=== PATIENT | female | born 1980 | race Caucasian/White ===

== ENCOUNTER 2017-01-28 12:23 | Observation (INO) | payer BC ==
[~2017-01-28] VITALS: Ht 170.2 cm; Wt 96.4 kg
--- NOTE | ~2017-01-28 | OR ---
PATIENT'S NAME: JOSE MCCLOUD [facility] AGE: 36 Y [address] ROOM: [address] [address] LOCATION: BS ADMIT DATE: 01/28/2017 OR/Procedure Report DISCHARGE DATE: FAMILY PHYSICIAN: Daljit Nye MD ATTENDING PHYSICIAN: Kamron Ryan SURGEON: Kamron Ryan MD PATROL COMMANDER: Betzaida Jeff PA-C. DATE OF PROCEDURE: 01/28/2017 PREOPERATIVE DIAGNOSES: 1. Chronic cholecystitis and cholelithiasis. 2. Possible choledocholithiasis. POSTOPERATIVE DIAGNOSIS: Acute cholecystitis and cholelithiasis with cystic duct obstruction, secondary to stone, resolution of common bile duct filling defect with flushing. PROCEDURE: Laparoscopic cholecystectomy with intraoperative cholangiogram. ANESTHESIA: General with 30 mL 0.5% Marcaine. SPECIMEN: Gallbladder. CHOLANGIOGRAM FINDINGS: The 1st three spot films on cholangiogram view showed possible correct anatomy identified with cannulation of the cystic duct, mildly dilated common bile duct with floating filling defect, but flow of contrast into duodenum after removing more cystic duct debris and final cholangiogram still shots showed resolution of the filling defect. INDICATION: The patient is a 36-year-old young lady kindly sent down by her emergency room up in [place], [place] with cholecystitis and cholelithiasis and possible common duct stone. The patient's preop liver function tests, amylase, lipase were normal, elevated white count 14,000. We recommended gallbladder removal with cholangiogram assessment of the common duct, the procedure, benefits, risks, and she agreed to proceed. DESCRIPTION OF PROCEDURE: After informed consent, the patient was taken to the operating room, and after general endotracheal anesthesia, the patient's abdomen was prepped and draped into a sterile field. Time-out performed. We confirmed the patient, plan, procedure, and administration of preop antibiotics. Local anesthetic infiltrated prior to each incision. The first one made below the umbilicus and carried down to identify the anterior fascia through which a Veress needle inserted, pneumoperitoneum created, trocars placed in standard position, safe entry was noted. The gallbladder was distended, pale, looked hydropic, lot of acute inflammatory changes, and PATIENT'S NAME: JOSE CMCLOUD [facility] AGE: 36 Y [address] ROOM: [address] [address] LOCATION: GOBS ADMIT DATE: 01/28/2017 OR/Procedure Report DISCHARGE DATE: FAMILY PHYSICIAN: Daljit Nye MD ATTENDING PHYSICIAN: Kamron Ryan. We isolated out the infundibulum and stripped down the very edematous adhesions. The infundibulum was impacted with stones and the cystic duct once we opened up the triangle was dilated. We identified the enlarged cystic lymph node, stripped it down, exposed the cystic artery and clipped it x3. We then got circumferential control around the proximal cystic duct, which was dilated. We placed a clip on the gallbladder side, did a cystotomy, and retrograde and milked out cystic duct stones. We attempted our 1st cholangiogram, but we could not get, we had back flow, back pressure, and could not get it to go into the common bile duct without a leak. Therefore, we removed the catheter and we dissected out additional length of the cystic duct. We found an impacted stone. We crushed the stone in and milked it out till we got free flow of contrast coming out. Our initial cholangiogram showed a possible filling defect. We then went ahead and flushed it with 20 mL of saline, re-shot our films, and there appeared to be no residual filling defect, presumably the common bile duct stone had passed. Next, we removed the cholangiogram catheter and clipped the cystic duct x3 distally and divided. The gallbladder was removed from the liver bed and placed into an EndoCatch bag and brought out through the umbilical incision. We irrigated until clear and bleeding points of liver or gallbladder fossa cauterized. We used the Endo Stitch to close the subxiphoid 11-mm fascia defect. We then released the pneumoperitoneum, removed all the trocars, and closed the fascia defect at the umbilicus with 0 Vicryl, skin closed with subcuticular 4-0 Vicryl, Steri-Strips and sterile dressings applied. The patient tolerated the procedure well and transferred to recovery room in stable condition. KAMRON RYAN MD WTS/modl /[id number] CC: Daljit Nye MD d: 01/29/17 0050 t: 02/01/1714, OPERATIVE SUMMARY
--- NOTE | ~2017-01-28 | HP ---
PATIENT'S NAME: JOSE MCCLOUD [facility] AGE: 36 Y [address] ROOM: [place] [address] [place] [facility] [place]: 01/28/2017 History & Physical DISCHARGE DATE: FAMILY PHYSICIAN: Daljit Nye MD ATTENDING PHYSICIAN: Kamron Cote DATE OF SERVICE: CHIEF COMPLAINT: Abdominal pain. REVIEW OF RECORD: The patient is a 36-year-old young lady kindly referred down from her primary care physician up in [facility] for abdominal pain, suspected cholecystitis, cholelithiasis, and possible choledocholithiasis. The patient states over the last 5 years, she has had " gastric reflux symptoms." She has been having some epigastric pain. It is related to food and alcohol intake, etc,. In the last 48 hours, after drinking alcohol on the evening of 01/26/2017, she had abdominal pain. It lasted till Saturday night, and therefore, she went to the ER. She was found to be tender in the right upper quadrant. The physician ordered ultrasound that showed cholelithiasis and gallstones in the neck of the gallbladder. There was no evidence of gallbladder wall thickening. It is possibly felt to be choledocholithiasis. However, her white count is elevated at 14,000. Her liver function tests amylase and lipase are normal. The patient has had no fevers, chills, or jaundice. She has had some mild nausea and dry emesis. Loose stools, but no blood in her stools. No dysuria. No pulmonary symptoms. She feels better today. They gave her a GI cocktail it sounds like. PAST MEDICAL HISTORY: None. MEDICATIONS: None. ALLERGIES: NONE. OPERATIONS: x2. SOCIAL HISTORY: She does not smoke. Occasionally drinks. She has 2 healthy children. FAMILY HISTORY: PATIENT'S NAME: JOSE MCCLOUD [facility] AGE: 36 Y [address] ROOM: [place] [address] [place] [facility] [place]: 01/28/2017 History & Physical DISCHARGE DATE: FAMILY PHYSICIAN: Daljit Nye MD ATTENDING PHYSICIAN: Kamron Cote Dad had diabetes. Lot of people in her family had gallbladder removed. REVIEW OF SYSTEMS: She denies any cardiac or pulmonary issues. She denies any swollen joints or back pain. PHYSICAL EXAMINATION: GENERAL: A pleasant 36-year-old young lady, alert and cooperative. HEENT: Head is normocephalic. Sclerae are nonicteric. Mucous membranes are dry. NECK: Supple. There is no adenopathy. LUNGS: Clear to auscultation. HEART: Normal sinus rhythm. ABDOMEN: Mildly obese. Positive bowel sounds. She is tender in the right upper quadrant with guarding, but no rebound. EXTREMITIES: 2/2 femoral and dorsalis pedis pulses. No peripheral edema. IMPRESSION: Biliary colic symptoms with evidence of cholelithiasis. I suspect some cholecystitis, may be even choledocholithiasis. With her liver function, amylase and lipase being normal. I recommend that we proceed with gallbladder removal and we will perform a cholangiogram for assessment of the common bile duct. If needed postop ERCP is available. I explained the procedure, benefits, and risks including, but not limited to infection, bleeding, bile leak, common bile duct injury requiring repeat operation, pulmonary cardiac decompensation. The patient's questions answered and she agrees to proceed. KAMRON COTE MD WTSammy/modl /[id number] D: [id number] T: [id number] HISTORY & PHYSICAL
[2017-01-28] MEDS ORDERED: PRILOSEC20 MG PO (12:59)
[2017-01-29 04:14] LABS: BASOPHIL % 0.1 %; EOSINOPHIL % 0.2 %; HEMATOCRIT 34.7 % (33.0-46.0); HEMOGLOBIN 11.8 g/dL (11.0-15.0); IMMATURE GRANULOCYTE # 0.1 K/uL (0.0-0.3); IMMATURE GRANULOCYTE % 0.5 %; LYMPHOCYTE # 2.5 K/uL (0.8-4.0); LYMPHOCYTE % 22.1 %; MCH 31.2 pg (27.0-34.0); MCV 91.8 fl (83.0-98.0); MONOCYTE # 0.8 K/uL (0.0-1.0); MONOCYTE % 7.3 %; MPV 10.3 fl (9.4-12.4); NEUTROPHIL % 69.8 %; NRBC % 0 /100WBC (0-0.00); PLATELET COUNT 276 K/uL (150-450); RBC 3.78 M/uL (3.50-5.50); RDW-CV 12.6 % (11.9-14.6); WBC 11.4 K/uL (4.0-11.0)
--- NOTE | 2017-01-29 04:34 | NUR ---
VSS, 4 abdominal incisions. 2 of them are clean/dry/intact. 2 of them have bloody drainage noted on them. pt complains of pain only in the 2 incisions on her right side. 2 norco given at 1845, 2304, and 0413. 2mg of morphine given at 2034 and 0427 for breakthrough pain. pt is NPO until reviews her labs this am. pt ambulates to bathroom and ambulated in the halls at 0415. IV infusing D51/2 in left hand. Running at 75ml/hr. no complications. bilateral pnuematic foot pumps on.
[2017-01-29 04:35] LABS: ALBUMIN 2.8 gm/dL (3.5-5.0); ALK PHOS 68 IU/L (33-138); ALT 35 IU/L (12-78); ANION GAP 10.8 (10.0-19.0); AST 38 IU/L (10-40); BLOOD UREA NITROGEN 8 mg/dL (6-24); CALCIUM 8.1 mg/dL (8.5-10.5); CHLORIDE 109 mMol/L (96-110); CO2 25 mMol/L (22-32); CREATININE 0.7 mg/dL (0.5-1.1); POTASSIUM 4.8 mMol/L (3.7-5.1); SODIUM 140 mMol/L (135-145); TOTAL BILIRUBIN 0.7 mg/dL (0.0-1.5); TOTAL PROTEIN 6.3 g/dL (6.0-8.4)
[2017-01-29] MEDS ORDERED: NORCO 5-325 TA1 EACH PO (11:00)
[2017-01-29] MEDS ORDERED: COLACE100 MG PO (11:01)
== END 2017-01-29 14:20 | disposition disaster alternative care site (69) ==
LOC: GSDC 12:23 → GOBS 18:34
PROVIDERS: ADMIT Surgery
PROC: 0FT44ZZ Resection of Gallbladder, Percutaneous Endoscopic Approach (ICD-10-PCS; principal; 2017-01-28)
PROC: BF11YZZ Fluoroscopy of Biliary and Pancreatic Ducts using Other Contrast (ICD-10-PCS; 2017-01-28)
DX: K80.12 Calculus of gallbladder with acute and chronic cholecystitis without obstruction (principal); Z98.890 Other specified postprocedural states; Z79.899 Other long term (current) drug therapy
CPT/HCPCS: G0378; J1335; J2270; J3010; J7120

== ENCOUNTER 2017-02-28 13:00 | Observation (INO) | payer BC ==
[~2017-02-28] VITALS: Ht 170.2 cm; Wt 94.1 kg
--- NOTE | ~2017-02-28 | CON ---
PATIENT'S NAME: JOSE MCCLOUD [facility] AGE: 37 Y [address] ROOM: [place] [address] [place] [facility] [place]: 02/28/2017 Consultation DISCHARGE DATE: FAMILY PHYSICIAN: Daljit Nye MD ATTENDING PHYSICIAN: SONYA HOLDER DATE OF CONSULTATION: 03/01/2017 REFERRING PHYSICIAN: SHYANN TREVIÑO MD REASON FOR CONSULTATION: Abdominal pain. HISTORY OF PRESENT ILLNESS: This is a pleasant 37-year-old female with minimal past medical history until approximately a month ago. The patient was found to have choledocholithiasis with cholecystitis. She underwent cholecystectomy with Dr. Cote at the end of January. Intraoperative cholangiogram did note some filling defects, they were able to flush stones from the duct as ERCP was not pursued at this time. The patient was noted to be lying on her back and began having right upper quadrant pain that was sharp and stabbing in character. She does state that this was episodic flaring, 3-4 times prior to admission. She presented to the emergency room in [place] with lack of fevers though increasing right upper quadrant pain and midepigastric tenderness. White blood cell count was found to be 17.8 as well as mild transaminase elevation with normal bilirubin and normal lipase. The patient was then transferred to [place] for possible ERCP. The patient was seen and examined. She again denies any recent fever or chills. No nausea or vomiting aside for a single episode during transport after receiving pain medication. She denies any chest pain or chest pressure. She does state that the abdominal pain is located in her mid epigastric area as well as right upper quadrant. She denies any shaking chills. No change in her bowel movements. No fever or chills. PAST MEDICAL HISTORY: History of cholelithiasis, status post laparoscopic cholecystectomy. PAST SURGICAL HISTORY: Cholecystectomy approximately a month ago and section x2. SOCIAL HISTORY: The patient is an occasional social alcohol drinker. Works as a psychologist. Denies any tobacco use. FAMILY HISTORY: PATIENT'S NAME: JOSE MCCLOUD [facility] AGE: 37 Y [address] ROOM: [place] [address] [place] [facility] [place]: 02/28/2017 Consultation DISCHARGE DATE: FAMILY PHYSICIAN: Daljit Nye MD ATTENDING PHYSICIAN: SONYA HOLDER The patient's father has diabetes, several family members have a history of cholecystectomies for similar problems. ALLERGIES: NO KNOWN MEDICATION ALLERGIES. CURRENT MEDICATIONS: Please refer to the medication administration record. REVIEW OF SYSTEMS: All point review of systems was completed. All were negative except for those identified in the history of present illness. PHYSICAL EXAMINATION: GENERAL: A pleasant 37-year-old female, lying in bed, who appears to be in no acute distress. VITAL SIGNS: Temperature 98.5, pulse of 78, respirations of 12, blood pressure 136/74, oxygen saturations 97% on room air. SKIN: [place], warm, dry. No jaundice. HEENT: Head is normocephalic and atraumatic. Pupils are equal, round, and reactive to light. Sclerae are clear, nonicteric. Oral mucosa is pink and moist. NECK: Soft and supple. CARDIOVASCULAR: Regular. Normal S1, S2. RESPIRATORY: Respirations are even and unlabored. LUNGS: Clear to auscultation. ABDOMEN: Slightly tender in the midepigastric area. Bowel sounds are positive. Abdomen is also soft and round. MUSCULOSKELETAL: No muscle weakness or atrophy. EXTREMITIES: No edema. NEUROLOGIC: Grossly nonfocal. LABORATORY AND DIAGNOSTIC DATA: Laboratory obtained at [place] shows white blood cell count of 6.9, lactate is 0.8, hemoglobin 11.9, hematocrit of 34.8, and platelets of 216. Chemistry panel includes a glucose of 84, BUN of 5, creatinine 0.6, sodium 141, potassium of 4.5, chloride 114, CO2 of 21. Albumin of 3.1. AST initially was 630, elevated to 841; ALT was initially 467, elevated to 820; alkaline phosphatase was 126; total bilirubin 1.8. Amylase was 13, lipase was 67. ASSESSMENT AND PLAN: Again, this is a very pleasant 37-year-old female who was admitted with abdominal pain. 1. Suspected choledocholithiasis. At this time, we will go forth with an PATIENT'S NAME: JOSE MCCLOUD [facility] AGE: 37 Y [address] ROOM: [address] [address] [place] [facility] [place]: 02/28/2017 Consultation DISCHARGE DATE: FAMILY PHYSICIAN: Daljit Nye MD ATTENDING PHYSICIAN: SONYA HOLDER ERCP. Risks, benefits, and alternatives of the procedure were discussed per Dr. Shyann Treviño with the patient and she verbalizes understanding. The patient will be kept n.p.o. in preparation for the procedure. Further recommendations to be given status post ERCP for suspected choledocholithiasis. Thank you for this consult. ANJUM SMITH APRN FOR MD KIANA ARAUZ/modl /[id number] d: 03/01/17 1838 t: 03/18/17 1136, CONSULTATION REPORT
--- NOTE | ~2017-02-28 | HP ---
PATIENT'S NAME: JOSE MCCLOUD [facility] AGE: 37 Y [address] ROOM: [id number] [place], [place] [address] LOCATION: [facility] [place] ADMIT DATE: 02/28/2017 History & Physical DISCHARGE DATE: FAMILY PHYSICIAN: Daljit Nye MD ATTENDING PHYSICIAN: SONYA HOLDER DATE OF SERVICE: 02/28/2017 CHIEF COMPLAINT: Abdominal pain. HISTORY OF PRESENT ILLNESS: This is a very pleasant 37-year-old female with minimal past medical history until lately when she presented approximately one month ago with symptoms of biliary colic, found to have choledocholithiasis with cholecystitis, and underwent a cholecystectomy with Dr. Cote at the end of January. Intraoperatively at that time, cholangiogram did note some filling defects which were able to be flushed and patient was told that there may be concerns of ongoing stones, however, ERCP had not been pursued to this point. The patient notes that today while lying back in the dentist's chair, she noted return of this right upper quadrant abdominal pain, sharp and stabbing in character, and episodic flaring 3 to 4 times between this morning and currently. She presented to her local emergency department in [place] where evaluation noted normal vital signs including lack of fevers with significant right upper quadrant tenderness as well as some epigastric tenderness on exam. She was found to have a white cell count of 17.8, and laboratories consistent with mild transaminase elevation with normal bilirubin and normal lipase. Concern given her pattern of pain and recent history was for retained stone and choledocholithiasis, and for this reason, the patient was determined to be a candidate for transfer to [facility] for Gastroenterology evaluation and possible ERCP. Currently, patient denies any recent fevers or chills. No nausea or vomiting, aside for a single episode of vomiting in transport during an episode of pain though patient is not certain that this may have instead been related to taking pain medications on an empty stomach. She notes no chest pain, shortness of breath, or abdominal pain, in addition to what was described above. No dysuria, hematuria, constipation, diarrhea, hematochezia, melena, leg swelling, or other concerns. She is otherwise feeling well and denies any additional past medical history of late. She has been feeling well since cholecystectomy and healed well from this procedure up until today's episode of abdominal pain. PAST MEDICAL HISTORY: Benign aside from cholelithiasis. PAST SURGICAL HISTORY: PATIENT'S NAME: JOSE MCCLOUD [facility] AGE: 37 Y [address] ROOM: [id number] [place], [place] [address] LOCATION: [facility] [place] ADMIT DATE: 02/28/2017 History & Physical DISCHARGE DATE: FAMILY PHYSICIAN: Daljit Nye MD ATTENDING PHYSICIAN: SONYA HOLDER Cholecystectomy with Dr. Cote a month ago as well as section x2. FAMILY HISTORY: Father with diabetes, and several family members have had to have cholecystectomies for similar symptoms. SOCIAL HISTORY: Occasional alcohol drinker. Works as a psychologist. Denies tobacco use. Also denies any significant recent drinking. ALLERGIES: NONE NOTED. MEDICATIONS: Percocet given prior to transfer. No recent antibiotics. REVIEW OF SYSTEMS: Complete review of systems was performed and negative except as noted above. PHYSICAL EXAMINATION: VITAL SIGNS: Temperature 97.1, pulse 80, respiratory rate is 20, saturating well on room air, and blood pressure 135/61. GENERAL: The patient is sitting in chair upon recent arrival in private vehicle, in no acute distress. HEENT: Head; normocephalic and atraumatic. Eyes; pupils round, reactive to light. Extraocular muscles intact. No scleral icterus. No conjunctival injection. ENT; mucous membranes moist. No nasal discharge. NECK: Supple. No thyromegaly. No lymphadenopathy. CARDIOVASCULAR: Regular rate and rhythm. No murmurs, rubs, or gallops appreciated. 2+ pulses bilaterally including radial and dorsalis pedis. RESPIRATIONS: Clear to auscultation bilaterally. Normal effort. Saturating well on room air. ABDOMEN: At this time is soft, nontender, and nondistended with normoactive bowel sounds. Negative Rogers sign. Though patient has recently taken Percocet. EXTREMITIES: Without edema. No skin lesions appreciated. NEUROLOGIC: The patient is alert and oriented x3, in no acute distress with moving extremities voluntarily and ambulating about the room during exam. PSYCHIATRIC: Normal mood and affect. LABORATORY DATA AND IMAGING STUDIES: Labs and imaging are from outside hospital as current labs here are pending. They include white blood cell count of 17.8, hemoglobin 14.9, and platelets 300,000. Metabolic studies; sodium 141, potassium 3.8, BUN 11, creatinine 0.7, alkaline phosphatase 89, AST 128, ALT 67, lipase 20, and amylase 28. PATIENT'S NAME: JOSE MCCLOUD [facility] AGE: 37 Y [address] ROOM: [place] [address] [place]: [facility] [place] ADMIT DATE: 02/28/2017 History & Physical DISCHARGE DATE: FAMILY PHYSICIAN: Daljit Nye MD ATTENDING PHYSICIAN: SONYA HOLDER ASSESSMENT: 1. Presumed retained stone with possible choledocholithiasis. 2. Elevated transaminases. 3. Leukocytosis. PLAN: Pain is markedly improved with Percocet prior to transport. Given history, strongest suspicion stands for choledocholithiasis, though no infectious concerns at this point, aside from leukocytosis to suggest cholangitis. We will hold off on antibiotics for now and obtain a right upper quadrant ultrasound, continuing Percocet for pain, Zofran for nausea, and IV fluid rehydration. LFT pattern would be consistent with alcoholic pattern more so than obstructive biliary pattern, however, lipase negative and no evidence currently on exam of pancreatitis. We will repeat laboratories here to include CBC, CMP, lactic acid, and lipase now, and follow up with ultrasound of right upper quadrant. I presume that patient may warrant an ERCP in the morning, and I have notified GI and we will maintain n.p.o. status in the morning in preparation for this likely procedure. The patient is a full code. We will hold off on DVT prophylaxis at this time as patient is ambulatory and has plans for procedure most likely in the morning. TIME: I spent 35 minutes on date of admission reviewing outside records and with [id number] discussion with the patient as well as in discussion with Gastroenterology. MD JG LOVE/sundeep /[id number] D: [id number] T: [id number] HISTORY & PHYSICAL
--- NOTE | ~2017-02-28 | DS ---
PATIENT'S NAME: JOSE MCCLOUD [facility] AGE: 37 Y [address] ROOM: [place] [address] [place] [facility] [place]: 02/28/2017 Discharge Summary DISCHARGE DATE: 03/02/2017 FAMILY PHYSICIAN: Daljit Nye MD ATTENDING PHYSICIAN: Chencho Philip PRIMARY DIAGNOSES: 1. Choledocholithiasis status post ERCP with stent. 2. Obstructive jaundice. 3. Elevated liver function tests. 4. Abdominal pain. 5. Obesity. 6. Depression. OPERATIONS/PROCEDURES: ERCP with pancreatic stent placement was performed by Dr. Lamas on 03/01/2017. HOSPITAL COURSE: The patient was admitted to the hospital as noted above with a presumptive diagnosis of suspected choledocholithiasis. She was seen and evaluated in conjunction with Gastroenterology. She received supportive cares. She did undergo ERCP with stent placement as outlined above. Subsequently, her symptoms of abdominal pain improved. By hospital day #3, she was felt to be stable enough for discharge home with plans for close clinical followup with the primary care provider. It was the recommendation of Gastroenterology that she could have a repeat KUB in 1 week to confirm that the pancreatic stent had passed on its own. If there was any evidence that it had not, she may ultimately require outpatient followup here with Gastroenterology for repeat ERCP and stent retrieval. DISCHARGE INSTRUCTIONS: DIET: Regular as tolerated. ACTIVITY: As tolerated. MEDICATIONS: 1. Lexapro 20 mg p.o. daily. 2. Percocet 5/325 one to two tabs p.o. q.6 hours p.r.n. pain. FOLLOWUP: She will follow up with Dr. Nye on March 12, 2017, with a repeat KUB to confirm passage of the pancreatic stent. She will follow up with Gastroenterology on a p.r.n. basis. PATIENT'S NAME: JOSE MCCLOUD [facility] AGE: 37 Y [address] ROOM: [place] [address] [place] [facility] [place]: 02/28/2017 Discharge Summary DISCHARGE DATE: 03/02/2017 FAMILY PHYSICIAN: Daljit Nye MD ATTENDING PHYSICIAN: Chencho Philip CONDITION ON DISCHARGE: Good. Total time spent on discharge process 35 minutes. DARRIUS J MD KRISTY SALEH/ayel /[id number] d: 03/03/17 0126 t: 03/13/17 1720, DISCHARGE SUMMARY
[~2017-02-28 13:00] MED LIST: COLACE100 MG PO; NORCO 5-325 TA1 EACH PO; PRILOSEC20 MG PO
[2017-02-28] MEDS ORDERED: PERCOCET 5-3251 EACH PO (17:03)
[2017-02-28] MEDS ORDERED: LEXAPRO10 MG PO (17:04)
[2017-02-28 18:34] LABS: BASOPHIL % 0.2 %; EOSINOPHIL % 0.1 %; HEMATOCRIT 39.2 % (33.0-46.0); HEMOGLOBIN 13.5 g/dL (11.0-15.0); IMMATURE GRANULOCYTE % 0.3 %; LYMPHOCYTE # 1.3 K/uL (0.8-4.0); LYMPHOCYTE % 12.4 %; MCH 30.8 pg (27.0-34.0); MCHC 34.4 gm/dL (32.0-36.5); MCV 89.5 fl (83.0-98.0); MONOCYTE # 0.3 K/uL (0.0-1.0); MONOCYTE % 2.8 %; MPV 10.8 fl (9.4-12.4); NEUTROPHIL # (ANC) 8.9 K/uL (1.8-7.8); NEUTROPHIL % 84.2 %; NRBC % 0 /100WBC (0-0.00); PLATELET COUNT 279 K/uL (150-450); RBC 4.38 M/uL (3.50-5.50); RDW-CV 11.9 % (11.9-14.6); WBC 10.6 K/uL (4.0-11.0)
[2017-02-28 18:54] LABS: ALBUMIN 3.8 gm/dL (3.5-5.0); ALK PHOS 126 IU/L (33-138); ANION GAP 11.1 (10.0-19.0); BLOOD UREA NITROGEN 9 mg/dL (6-24); CHLORIDE 109 mMol/L (96-110); CO2 24 mMol/L (22-32); CREATININE 0.7 mg/dL (0.5-1.1); POTASSIUM 4.1 mMol/L (3.7-5.1); SODIUM 140 mMol/L (135-145); TOTAL PROTEIN 7.8 g/dL (6.0-8.4)
[2017-02-28 18:56] LABS: ALT 467 IU/L (12-78); AST 630 IU/L (10-40); TOTAL BILIRUBIN 1.5 mg/dL (0.0-1.5)
[2017-03-01 04:37] LABS: BASOPHIL % 0.4 %; EOSINOPHIL # 0.1 K/uL (0.0-0.5); EOSINOPHIL % 1.7 %; HEMATOCRIT 34.8 % (33.0-46.0); HEMOGLOBIN 11.9 g/dL (11.0-15.0); IMMATURE GRANULOCYTE # 0.1 K/uL (0.0-0.3); IMMATURE GRANULOCYTE % 0.7 %; LYMPHOCYTE # 1.9 K/uL (0.8-4.0); LYMPHOCYTE % 27.8 %; MCH 30.3 pg (27.0-34.0); MCHC 34.2 gm/dL (32.0-36.5); MCV 88.5 fl (83.0-98.0); MONOCYTE # 0.5 K/uL (0.0-1.0); MONOCYTE % 6.8 %; NEUTROPHIL # (ANC) 4.3 K/uL (1.8-7.8); NEUTROPHIL % 62.6 %; NRBC % 0.9 /100WBC (0-0.00); RBC 3.93 M/uL (3.50-5.50); RDW-CV 11.9 % (11.9-14.6); WBC 6.9 K/uL (4.0-11.0)
[2017-03-01 04:38] LABS: PLATELET COUNT 216 K/uL (150-450)
[2017-03-01 04:55] LABS: ALBUMIN 3.1 gm/dL (3.5-5.0); ALK PHOS 128 IU/L (33-138); BLOOD UREA NITROGEN 5 mg/dL (6-24); CALCIUM 8.3 mg/dL (8.5-10.5); CHLORIDE 114 mMol/L (96-110); CO2 21 mMol/L (22-32); CREATININE 0.6 mg/dL (0.5-1.1); SODIUM 141 mMol/L (135-145); TOTAL BILIRUBIN 1.8 mg/dL (0.0-1.5); TOTAL PROTEIN 6.6 g/dL (6.0-8.4)
[2017-03-01 04:56] LABS: ALT 820 IU/L (12-78); ANION GAP 10.5 (10.0-19.0); AST 841 IU/L (10-40)
[2017-03-01 04:57] LABS: POTASSIUM 4.5 mMol/L (3.7-5.1)
[2017-03-02 04:46] LABS: BASOPHIL % 0.1 %; EOSINOPHIL # 0.1 K/uL (0.0-0.5); EOSINOPHIL % 0.6 %; HEMATOCRIT 32.3 % (33.0-46.0); IMMATURE GRANULOCYTE % 0.2 %; LYMPHOCYTE # 3.1 K/uL (0.8-4.0); LYMPHOCYTE % 34.4 %; MCHC 34.1 gm/dL (32.0-36.5); MONOCYTE # 0.6 K/uL (0.0-1.0); MONOCYTE % 6.3 %; MPV 10.5 fl (9.4-12.4); NEUTROPHIL # (ANC) 5.3 K/uL (1.8-7.8); NEUTROPHIL % 58.4 %; NRBC % 0 /100WBC (0-0.00); PLATELET COUNT 242 K/uL (150-450); RBC 3.55 M/uL (3.50-5.50); RDW-CV 11.9 % (11.9-14.6)
== END 2017-03-02 12:40 | disposition disaster alternative care site (69) ==
LOC: GMSU 16:16
PROVIDERS: Internal Medicine Gastroenterology; ADMIT Internal Medicine
PROC: 0FC98ZZ Extirpation of Matter from Common Bile Duct, Via Natural or Artificial Opening Endoscopic (ICD-10-PCS; principal; 2017-03-01)
PROC: 0F7D8DZ Dilation of Pancreatic Duct with Intraluminal Device, Via Natural or Artificial Opening Endoscopic (ICD-10-PCS; 2017-03-01)
DX: K80.50 Calculus of bile duct without cholangitis or cholecystitis without obstruction (principal); D72.829 Elevated white blood cell count, unspecified; R74.0 Nonspecific elevation of levels of transaminase and lactic acid dehydrogenase [LDH]; F32.9 Major depressive disorder, single episode, unspecified; E66.9 Obesity, unspecified; Z68.32 Body mass index [BMI] 32.0-32.9, adult; Z90.49 Acquired absence of other specified parts of digestive tract
CPT/HCPCS: C1769; C2625; C9113; G0378; J3010; J7030